=== PATIENT | female | born 1990 | race African-American/Black ===

== ENCOUNTER 2022-01-16 07:54 | Day surgery (SDC) | payer OTHER ==
[~2022-01-16] VITALS: Ht 160 cm; Wt 119.7 kg
[~2022-01-16 07:54] MED LIST: ACETAMINOPHEN *IV* 1,000 MG IV ONE
[2022-01-16] MEDS ORDERED: LR 1,000 ML IV SCH ×2 (08:05→12:15)
[2022-01-16 08:54] LABS: HEMATOCRIT 36.8 % (36.0-47.0); HEMOGLOBIN 11.2 g/dl (12.0-15.5); MEAN CORPUSCULAR HEMOGLOBIN 22.5 pg (27.0-33.0); MEAN CORPUSCULAR HGB CONC 30.4 g/dl (32.0-36.5); PLATELET COUNT, AUTOMATED 386 10^3/uL (150-450); RED BLOOD COUNT 4.97 10^6/uL (4.00-5.40); WHITE BLOOD COUNT 6.9 10^3/uL (4.0-10.0)
[2022-01-16] MEDS ORDERED: propofoL 200 MG/20 ML VIAL As Ordered ONE (10:23)
[2022-01-16] MEDS ORDERED: LIDOCAINE 2% 100MG/5ML SDV (FOR ANES.) As Ordered ONE (10:23)
[2022-01-16] MEDS ORDERED: MIDAZOLAM INJ 2MG/2ML VIAL (J2250 PER 1MG) As Ordered ONE (10:24)
[2022-01-16] MEDS ORDERED: fentaNYL 100 MCG/2 ML INJECTION As Ordered ONE (10:25)
[2022-01-16] MEDS ORDERED: LIDOCAINE 1% SDV 30ML VIAL As Ordered ONE (10:46)
[2022-01-16] MEDS ORDERED: SILVER NITRATE APPLICATOR (1 = QTY 10) As Ordered ONE (10:46)
[2022-01-16] MEDS ORDERED: ONDANSETRON 4MG 2ML VIAL As Ordered ONE (11:11)
[2022-01-16] MEDS ORDERED: dexameTHASONE 4 MG/ML 1ML VIAL (J1100 PER 1MG) As Ordered ONE (11:11)
[2022-01-16] MEDS ORDERED: KETOROLAC 60MG 2ML VIAL As Ordered ONE (11:12)
[2022-01-16] MEDS ORDERED: BUPIVACAINE HCL 0.25% 30ML VIAL As Ordered ONE (11:21)
[2022-01-16] MEDS ORDERED: fentaNYL 100 MCG/2 ML INJECTION IV PRN (12:15)
[2022-01-16] MEDS ORDERED: ONDANSETRON 4MG 2ML VIAL IV PRN (12:15)
[2022-01-16] MEDS ORDERED: oxyCODONE 5MG TAB PO PRN (12:15)
[2022-01-16] MEDS ORDERED: HYDROMORPHONE HCL 0.5 MG/ 0.5 ML SYRINGE (J1170 PER 1) IV PRN (12:15)
[2022-01-16] MEDS ORDERED: ALBUTEROL SULFATE 2.5 MG/0.5 ML INH NEB SOLN NEB ONE (13:15)
[2022-01-16 14:05] VITALS: BP 123/69
== END 2022-01-16 14:39 | disposition home or self-care (01) ==
LOC: M SDC 07:54
PROVIDERS: ATTEND Obstetrics & Gynecology
DX: N93.9 Abnormal uterine and vaginal bleeding, unspecified (principal); N84.0 Polyp of corpus uteri; D25.9 Leiomyoma of uterus, unspecified; R51.9 Headache, unspecified
CPT/HCPCS: 36415; 58558; 81025; 85027; 86850; 86900; 86901; 88305; 93005; J1100; J1885; J2250; J2405; J3010

== ENCOUNTER 2022-07-04 15:30 | Emergency (ER) | payer OTHER ==
[~2022-07-04] VITALS: Ht 160 cm; Wt 119.3 kg
[2022-07-04 15:31] VITALS: BP 132/63
[2022-07-04] MEDS ORDERED: LIDOCAINE 5% (LIDODERM) PATCH TD ONE (22:10)
[2022-07-04] MEDS ORDERED: KETOROLAC 60MG 2ML VIAL IM ONE (22:10)
[2022-07-04] MEDS ORDERED: diazePAM 5MG TABLET PO ONE (22:10)
[2022-07-04] MEDS ORDERED: NAPR-837 PO (22:11)
[2022-07-04] MEDS ORDERED: METH-1165 PO (22:11)
[2022-07-04] MEDS ORDERED: ASPE4PAD TOP (22:11)
== END 2022-07-04 22:41 | disposition home or self-care (01) ==
LOC: M ED 15:30
DX: M54.18 Radiculopathy, sacral and sacrococcygeal region (principal); Z79.1 Long term (current) use of non-steroidal anti-inflammatories (NSAID); Z79.899 Other long term (current) drug therapy
CPT/HCPCS: 96372; 99282; J1885

== ENCOUNTER → 2022-07-14 | Outpatient (CLI) | payer OTHER ==
[~2022-07-14] MED LIST changes: -ACETAMINOPHEN *IV* 1,000 MG IV ONE; +ASPE4PAD TOP; +METH-1165 PO; +NAPR-837 PO
== END ==
LOC: M SOG 07:57
PROVIDERS: ATTEND Orthopaedic Surgery
DX: M54.50 Low back pain, unspecified (principal)

== ENCOUNTER 2022-08-10 10:33 | Emergency (ER) | payer OTHER ==
[~2022-08-10] VITALS: Ht 162.6 cm; Wt 119.4 kg
[2022-08-10] MEDS ORDERED: ACETAMINOPHEN TAB 650MG DOSE (2X325MG) PO ONE (11:15)
[2022-08-10] MEDS ORDERED: KETOROLAC 60MG 2ML VIAL IM ONE (11:15)
[2022-08-10] MEDS ORDERED: MEDR4PAK PO (12:40)
[2022-08-10 12:48] VITALS: BP 115/58
== END 2022-08-10 12:49 | disposition home or self-care (01) ==
LOC: M ED 10:33
DX: M54.32 Sciatica, left side (principal); Z79.1 Long term (current) use of non-steroidal anti-inflammatories (NSAID); Z79.891 Long term (current) use of opiate analgesic; Z79.899 Other long term (current) drug therapy
CPT/HCPCS: 96372; 99283; J1885

== ENCOUNTER → 2022-09-08 | Outpatient (CLI) | payer OTHER ==
[~2022-09-08] MED LIST changes: +MEDR4PAK PO
== END ==
LOC: M RAD 15:21
PROVIDERS: ATTEND Orthopaedic Surgery
DX: M25.78 Osteophyte, vertebrae (principal); M54.50 Low back pain, unspecified

== ENCOUNTER 2022-11-04 11:34 | Emergency (ER) | payer OTHER ==
[~2022-11-04] VITALS: Ht 162.6 cm; Wt 119.4 kg
[2022-11-04 11:34] VITALS: BP 132/69; TEMP 97.8; O2SAT 99
[2022-11-04] MEDS ORDERED: METF-838 (11:46)
[2022-11-04] MEDS ORDERED: GABA-1171 (11:46)
[2022-11-04] MEDS ORDERED: TRIA1CR80 TOP (13:15)
[2022-11-04] MEDS ORDERED: PRED20TA PO (13:15)
[2022-11-04] MEDS ORDERED: CETI-24 PO (13:15)
== END 2022-11-04 13:31 | disposition home or self-care (01) ==
LOC: M ED 11:34
DX: L20.9 Atopic dermatitis, unspecified (principal); E11.9 Type 2 diabetes mellitus without complications; Z79.4 Long term (current) use of insulin; Z79.52 Long term (current) use of systemic steroids; Z79.899 Other long term (current) drug therapy

== ENCOUNTER → 2023-03-19 | Outpatient (CLI) | payer OTHER ==
[~2023-03-19] MED LIST changes: +CETI-24 PO; +GABA-1171; +METF-838; +PRED20TA PO; +TRIA1CR80 TOP
[2023-03-19 14:53] LABS: HEMATOCRIT 36.3 % (36.0-47.0); HEMOGLOBIN 11.2 g/dl (12.0-15.5); MEAN CORPUSCULAR HEMOGLOBIN 22.2 pg (27.0-33.0); MEAN CORPUSCULAR HGB CONC 30.9 g/dl (32.0-36.5); PLATELET COUNT, AUTOMATED 323 10^3/uL (150-450); RED BLOOD COUNT 5.04 10^6/uL (4.00-5.40)
[2023-03-19 15:57] LABS: HIV 1&2 SCREEN NEGATIVE (NEGATIVE)
[2023-03-19 16:06] LABS: HEPATITIS C VIRUS ABY INDEX 0.17 INDEX (<0.8)
[2023-03-19 16:26] LABS: CHLAMYDIA DNA AMPLIFICATION NEGATIVE (NEGATIVE); GC DNA AMPLIFICATION NEGATIVE (NEGATIVE)
== END ==
LOC: M PLALAB 09:25
PROVIDERS: ATTEND Specialist
DX: Z34.81 Encounter for supervision of other normal pregnancy, first trimester (principal); Z3A.00 Weeks of gestation of pregnancy not specified

== ENCOUNTER 2023-04-22 16:56 | Emergency (ER) | payer OTHER ==
[~2023-04-22] VITALS: Ht 162.6 cm; Wt 114.8 kg
[2023-04-22 18:03] LABS: BASO % 0.1 % (0.0-1.0); EOS # 0.2 10^3/uL (0.0-0.5); EOS % 1.6 % (0.0-3.0); HEMATOCRIT 34.8 % (36.0-47.0); LYMPH # 2.4 10^3/uL (1.5-5.0); LYMPH % 24.4 % (24.0-44.0); MEAN CORPUSCULAR HEMOGLOBIN 22.8 pg (27.0-33.0); MEAN CORPUSCULAR HGB CONC 31.6 g/dl (32.0-36.5); MEAN CORPUSCULAR VOLUME 72.2 fl (80.0-96.0); MONO # 0.7 10^3/uL (0.0-0.8); MONO % 6.5 % (2.0-8.0); NEUTROPHILS # 6.7 10^3/uL (1.5-8.5); PLATELET COUNT, AUTOMATED 307 10^3/uL (150-450); RED BLOOD COUNT 4.82 10^6/uL (4.00-5.40)
[2023-04-22 18:27] LABS: LIPASE 38 U/L (12-53)
[2023-04-22 18:29] LABS: ALBUMIN 3.2 G/DL (3.2-5.2); ALKALINE PHOSPHATASE 55 U/L (46-116); ALT/SGPT 17 U/L (7.0-40); AST/SGOT 12 U/L (<34); BILIRUBIN,DIRECT < 0.1 MG/DL (<0.4); BILIRUBIN,TOTAL 0.3 MG/DL (0.3-1.2); BLOOD UREA NITROGEN 8 MG/DL (9-23); CALCIUM LEVEL 9.3 MG/DL (8.5-10.1); CARBON DIOXIDE LEVEL 23 MMOL/L (20-31); CHLORIDE LEVEL 108 MMOL/L (98-107); CREATININE FOR GFR 0.61 MG/DL (0.55-1.30); GLOMERULAR FILTRATION RATE > 60.0 (>60); GLUCOSE, FASTING 83 MG/DL (60-100); POTASSIUM SERUM 3.8 MMOL/L (3.5-5.1); SODIUM LEVEL 138 MMOL/L (136-145); TOTAL PROTEIN 6.9 G/DL (5.7-8.2)
[2023-04-22 21:21] LABS: HCG, SERUM QUANTITATIVE 7654.3 MIU/ML (<4.2)
[2023-04-23 01:03] VITALS: BP 124/62; TEMP 97.3; O2SAT 99
== END 2023-04-23 01:05 | disposition home or self-care (01) ==
LOC: M ED 16:56
DX: O34.12 Maternal care for benign tumor of corpus uteri, second trimester (principal); Z3A.18 18 weeks gestation of pregnancy; E11.9 Type 2 diabetes mellitus without complications; Z79.891 Long term (current) use of opiate analgesic; Z79.4 Long term (current) use of insulin; Z79.52 Long term (current) use of systemic steroids; Z79.899 Other long term (current) drug therapy

== ENCOUNTER → 2023-04-29 | Outpatient (CLI) | payer OTHER | LOC: M WHC 07:10 | PROVIDERS: ATTEND Specialist | DX: Z34.82 Encounter for supervision of other normal pregnancy, second trimester (principal); Z3A.19 19 weeks gestation of pregnancy ==

== ENCOUNTER 2023-05-29 13:09 | Outpatient (CLI) | payer OTHER ==
[~2023-05-29] VITALS: Ht 160 cm; Wt 112.2 kg
[2023-05-29 13:27] VITALS: BP 93/52
[2023-05-29] MEDS ORDERED: HOME MED LIST COMPLETE! XX SCH (13:40)
[2023-05-29] MEDS ORDERED: COLA100C5 PO (16:21)
== END 2023-05-29 16:10 | disposition home or self-care (01) ==
LOC: M LDO 13:09
PROVIDERS: ATTEND Advanced Practice Midwife
DX: O26.892 Other specified pregnancy related conditions, second trimester (principal); K59.00 Constipation, unspecified; R10.30 Lower abdominal pain, unspecified; Z3A.23 23 weeks gestation of pregnancy; O34.219 Maternal care for unspecified type scar from previous cesarean delivery; O99.612 Diseases of the digestive system complicating pregnancy, second trimester
CPT/HCPCS: 59025; 81001; G0463

== ENCOUNTER → 2023-06-03 | Outpatient (CLI) | payer OTHER ==
[~2023-06-03] MED LIST changes: +COLA100C5 PO
[2023-06-03 18:20] LABS: HEMATOCRIT 34.7 % (36.0-47.0); HEMOGLOBIN 11.2 g/dl (12.0-15.5); MEAN CORPUSCULAR HEMOGLOBIN 24.5 pg (27.0-33.0); MEAN CORPUSCULAR HGB CONC 32.3 g/dl (32.0-36.5); MEAN CORPUSCULAR VOLUME 75.9 fl (80.0-96.0); PLATELET COUNT, AUTOMATED 304 10^3/uL (150-450); RED BLOOD COUNT 4.57 10^6/uL (4.00-5.40); WHITE BLOOD COUNT 9.5 10^3/uL (4.0-10.0)
== END ==
LOC: M PLALAB 14:36
PROVIDERS: ATTEND Obstetrics & Gynecology
DX: O34.211 Maternal care for low transverse scar from previous cesarean delivery (principal); Z3A.00 Weeks of gestation of pregnancy not specified

== ENCOUNTER → 2023-06-11 | Outpatient (CLI) | payer OTHER | LOC: M WHC 10:15 | PROVIDERS: ATTEND Obstetrics & Gynecology | DX: Z36.2 Encounter for other antenatal screening follow-up (principal); Z3A.25 25 weeks gestation of pregnancy ==

== ENCOUNTER → 2023-08-26 | Outpatient (REF) | payer OTHER | LOC: M SFHCWAGY 12:20 | PROVIDERS: ATTEND Specialist | DX: Z34.93 Encounter for supervision of normal pregnancy, unspecified, third trimester (principal); Z3A.36 36 weeks gestation of pregnancy ==

== ENCOUNTER 2023-09-15 02:34 | Outpatient (CLI) | payer OTHER ==
[~2023-09-15] VITALS: Ht 162.6 cm; Wt 117.0 kg
[~2023-09-15 02:34] MED LIST changes: +PRENTAB53 PO
[2023-09-15 02:58] VITALS: BP 125/58; O2SAT 99
[2023-09-15] MEDS ORDERED: HOME MED LIST COMPLETE! XX SCH (03:05)
== END 2023-09-15 04:10 | disposition home or self-care (01) ==
LOC: M LDO 02:34
PROVIDERS: ATTEND Advanced Practice Midwife
DX: O21.8 Other vomiting complicating pregnancy (principal); O34.219 Maternal care for unspecified type scar from previous cesarean delivery; O34.13 Maternal care for benign tumor of corpus uteri, third trimester; D25.9 Leiomyoma of uterus, unspecified; Z87.59 Personal history of other complications of pregnancy, childbirth and the puerperium; Z3A.38 38 weeks gestation of pregnancy
CPT/HCPCS: 59025; G0463

== ENCOUNTER 2023-09-17 04:50 | Inpatient (IN) | payer OTHER ==
[~2023-09-17] VITALS: Ht 160 cm; Wt 117.7 kg
[2023-09-17] VITALS (10 sets, daily range): BP systolic 107–137; BP diastolic 56–84; TEMP 96.7; O2SAT 97–100
[2023-09-17] MEDS ORDERED: HOME MED LIST COMPLETE! XX SCH (05:05)
[2023-09-17 06:06] LABS: HEMATOCRIT 34.1 % (36.0-47.0); HEMOGLOBIN 10.8 g/dl (12.0-15.5); MEAN CORPUSCULAR HEMOGLOBIN 23.2 pg (27.0-33.0); MEAN CORPUSCULAR HGB CONC 31.7 g/dl (32.0-36.5); MEAN CORPUSCULAR VOLUME 73.3 fl (80.0-96.0); PLATELET COUNT, AUTOMATED 285 10^3/uL (150-450); RED BLOOD COUNT 4.65 10^6/uL (4.00-5.40)
[2023-09-17] MEDS: LACTATED RINGER'S 1000 ML IV STA ×2 (06:36→12:57)
[2023-09-17] MEDS: LR 1,000 ML IV SCH ×2 (06:36→08:45)
[2023-09-17] MEDS: ceFAZolin SOD 2 GM in IV 1 EA IV ONE (07:08)
[2023-09-17] MEDS: BICITRA 30ML SOLN UDC PO ONE ×2 (07:08→13:00)
[2023-09-17 07:10] LABS: HEPATITIS C VIRUS ABY INDEX < 0.02 INDEX (<0.8)
[2023-09-17] MEDS ORDERED: MORPHINE PRES-FREE INJ 10 MG/10 ML VIAL As Ordered ONE (07:27)
[2023-09-17] MEDS ORDERED: KETOROLAC 60MG 2ML VIAL As Ordered ONE (07:27)
[2023-09-17] MEDS ORDERED: ONDANSETRON 4MG 2ML VIAL As Ordered ONE (07:27)
[2023-09-17] MEDS ORDERED: OXYTOCIN INJ 10UNITS/ML 1ML VIAL As Ordered ONE (07:27)
[2023-09-17] MEDS ORDERED: PHENYLephrine 500MCG 5ML (100MCG/ML) SYRINGE As Ordered ONE (07:27)
[2023-09-17 08:18] LABS: CORD GAS ABE A -1.7; CORD GAS HCO3 A 23.8 MMOL/L; CORD GAS O2 SAT A 32.3 %; CORD GAS PH A 7.361 UNITS; CORD GAS PO2 A 15.1 mmHg; CORD GAS SBC A 21.4 MMOL/L; CORD GAS TCO2 A 25.1 MMOL/L
[2023-09-17 08:20] LABS: CORD GAS ABE V -2.3; CORD GAS HCO3 V 20.6 MMOL/L; CORD GAS O2 SAT V 90.3 %; CORD GAS PH V 7.441 UNITS; CORD GAS PO2 V 41.5 mmHg; CORD GAS SBC V 22.4 MMOL/L; CORD GAS TCO2 V 21.6 MMOL/L
[2023-09-17] MEDS ORDERED: SLF 3 ML SYR IV SCH (08:35)
[2023-09-17] MEDS ORDERED: LR 1,000 ML IV SCH (08:35)
[2023-09-17] MEDS ORDERED: **NOTE PATIENT COMMENT** MISC XX SCH ×2 (08:35→09:00)
[2023-09-17] MEDS ORDERED: ONDANSETRON 4MG 2ML VIAL IV PRN ×3 (08:35→08:50)
[2023-09-17] MEDS ORDERED: oxyCODONE 5MG TAB PO PRN (08:35)
[2023-09-17] MEDS ORDERED: METOCLOPRAMIDE INJ 10MG/2ML VIAL IV PRN ×2 (08:35→09:00)
[2023-09-17] MEDS ORDERED: diphenhydrAMINE 50MG/ML VIAL IV PRN ×2 (08:35→09:00)
[2023-09-17] MEDS ORDERED: NALOXONE INJ 0.4MG/1ML VIAL IV PRN ×4 (08:35→09:00)
[2023-09-17] MEDS ORDERED: fentaNYL 100 MCG/2 ML INJECTION IV PRN ×2 (08:35→08:45)
[2023-09-17] MEDS ORDERED: SIMETHICONE 80MG CHEW TAB PO PRN (08:40)
[2023-09-17] MEDS ORDERED: RHO(D) IMMUNE GLOBULIN/MALTOSE 500MCG(2500IU)/2.2ML VIAL (WINRHO) IM SCH (08:40)
[2023-09-17] MEDS: PRENATAL VITAMINS CHEWABLE TABLET PO SCH (09:00)
[2023-09-17] MEDS: SLF 3 ML SYR IV SCH (09:00)
[2023-09-17] MEDS ORDERED: oxyCODONE 5MG TAB As Ordered ONE (09:14)
[2023-09-17] MEDS: oxyCODONE 5MG TAB PO PRN (09:17)
[2023-09-17] MEDS: KETOROLAC 30 MG/ML 1ML VIAL IV SCH (14:54)
[2023-09-18 02:00] VITALS: BP 136/61; O2SAT 100
[2023-09-18 06:00] VITALS: BP_SYST 115; BP_SYST 133; BP_DIAS 56; BP_DIAS 77; O2SAT 98
[2023-09-18 07:23] LABS: HEMATOCRIT 26.2 % (36.0-47.0); MEAN CORPUSCULAR HEMOGLOBIN 23.7 pg (27.0-33.0); MEAN CORPUSCULAR HGB CONC 32.1 g/dl (32.0-36.5); MEAN CORPUSCULAR VOLUME 73.8 fl (80.0-96.0); PLATELET COUNT, AUTOMATED 207 10^3/uL (150-450); RED BLOOD COUNT 3.55 10^6/uL (4.00-5.40); WHITE BLOOD COUNT 10.5 10^3/uL (4.0-10.0)
[2023-09-18 07:31] LABS: HEMOGLOBIN 8.4 g/dl (12.0-15.5)
[2023-09-18] MEDS ORDERED: IBUP80TA PO (09:50)
[2023-09-18] MEDS ORDERED: COLA100C5 PO (09:50)
[2023-09-18] MEDS ORDERED: OXYC1TAB23 PO (09:51)
[2023-09-18 10:00] VITALS: BP 124/59; O2SAT 100
[2023-09-18] MEDS: IBUPROFEN 800 MG TAB PO SCH (10:55)
[2023-09-18 16:01] VITALS: BP 117/63; O2SAT 100
[2023-09-18] MEDS: PERCOCET 5MG/325MG TAB PO PRN (16:18)
[2023-09-18 18:00] VITALS: BP 141/66; O2SAT 99
[2023-09-18 22:00] VITALS: BP 123/58; O2SAT 100
[2023-09-19 02:00] VITALS: BP 121/58; O2SAT 100
[2023-09-19] MEDS: PERCOCET 5MG/325MG TAB PO PRN (02:54)
[2023-09-19 06:00] VITALS: BP 117/57; O2SAT 98
[2023-09-19] MEDS: MEASLES,MUMPS,RUBELLA VACCINE INJ (MMR-II) SC.IMMUN ONE (09:00)
[2023-09-19 10:00] VITALS: BP 136/68; O2SAT 100
== END 2023-09-19 15:42 | disposition home or self-care (01) | DRG 785 ==
LOC: M LDI 04:50 → M OBS 10:15
PROVIDERS: ADMIT Specialist; ATTEND Specialist
PROC: 0UB70ZZ Excision of Bilateral Fallopian Tubes, Open Approach (ICD-10-PCS; 2023-09-17)
PROC: 10D00Z1 Extraction of Products of Conception, Low, Open Approach (ICD-10-PCS; principal; 2023-09-17 07:30)
DX: O34.211 Maternal care for low transverse scar from previous cesarean delivery (principal); Z37.0 Single live birth; Z3A.39 39 weeks gestation of pregnancy

== ENCOUNTER 2023-10-20 13:35 | Emergency (ER) | payer OTHER ==
[~2023-10-20] VITALS: Ht 162.6 cm; Wt 105.1 kg
[~2023-10-20 13:35] MED LIST changes: +IBUP80TA PO; +OXYC1TAB23 PO
[2023-10-20 13:36] VITALS: TEMP 98.6
[2023-10-20 15:41] LABS: BASO % 0.5 % (0.0-1.0); EOS # 0.3 10^3/uL (0.0-0.5); EOS % 4.8 % (0.0-3.0); HEMATOCRIT 37.4 % (36.0-47.0); HEMOGLOBIN 11.2 g/dl (12.0-15.5); LYMPH % 31.2 % (24.0-44.0); MEAN CORPUSCULAR HEMOGLOBIN 22.5 pg (27.0-33.0); MEAN CORPUSCULAR HGB CONC 29.9 g/dl (32.0-36.5); MEAN CORPUSCULAR VOLUME 75.1 fl (80.0-96.0); MONO # 0.6 10^3/uL (0.0-0.8); NEUTROPHILS # 3.5 10^3/uL (1.5-8.5); NEUTROPHILS % 54.2 % (36.0-66.0); PLATELET COUNT, AUTOMATED 328 10^3/uL (150-450); RED BLOOD COUNT 4.98 10^6/uL (4.00-5.40); WHITE BLOOD COUNT 6.5 10^3/uL (4.0-10.0)
[2023-10-20 16:13] LABS: BLOOD UREA NITROGEN 11 MG/DL (9-23); CALCIUM LEVEL 9.1 MG/DL (8.5-10.1); CARBON DIOXIDE LEVEL 29 MMOL/L (20-31); CHLORIDE LEVEL 108 MMOL/L (98-107); CREATININE FOR GFR 0.87 MG/DL (0.55-1.30); GLOMERULAR FILTRATION RATE > 60.0 (>60); GLUCOSE, FASTING 76 MG/DL (60-100); POTASSIUM SERUM 4.1 MMOL/L (3.5-5.1); SODIUM LEVEL 141 MMOL/L (136-145)
[2023-10-20 16:40] LABS: HCG, SERUM QUALITATIVE NEGATIVE (NEGATIVE)
[2023-10-20] MEDS: KETOROLAC TROMETHAMINE 10 MG TAB PO ONE (17:07)
[2023-10-20 17:30] VITALS: BP 111/57
[2023-10-20 19:05] VITALS: O2SAT 100
[2023-10-21] MEDS ORDERED: KETO10TAB PO (12:24)
== END 2023-10-20 19:13 | disposition home or self-care (01) ==
LOC: M ED 13:35
DX: R10.31 Right lower quadrant pain (principal); R59.0 Localized enlarged lymph nodes; Z91.048 Other nonmedicinal substance allergy status; Z79.899 Other long term (current) drug therapy